=== PATIENT | female | born 1995 | race Caucasian/White ===

== ENCOUNTER 2020-03-29 19:10 | Emergency (ER) | payer OTHER ==
[~2020-03-29] VITALS: Ht 165.1 cm; Wt 87.7 kg
[2020-03-29 19:32] VITALS: BP 146/96
[2020-03-29] MEDS ORDERED: TRAM50TA PO (19:49)
--- NOTE | 2020-03-29 19:49 | PHYS DOC ---
Past History Past Medical History: Other Additional Past Medical Histor: BACK PAIN, ASO Past Surgical History: Other Additional Past Surgical Histo: SHOULDER SX Alcohol Use: Occasionally General Adult EDM: Chief Complaint: LOWEREXTREMITY INJURY HPI: HPI: Patient is a 24-year-old female who presents with fishhook sticking in her right thigh. Patient states that she was out fishing and right after she caught the fish, it started shaking violently and shook the lower loose which then penetrated her right thigh. Patient reports pain is mild. She denies any other injuries. Patient is up-to-date on her tetanus. [] Review of Systems: Review of Systems: Constitutional: Denies fever or chills Respiratory: Denies cough or shortness of breath Cardiovascular: Denies chest pain or edema Musculoskeletal: Positive right thigh pain and foreign body Heart Score: Risk Factors: Risk Factors: DM, Current or recent (<one month) smoker, HTN, HLP, family history of CAD, obesity. Risk Scores: Score 0 - 3: 2.5% MACE over next 6 weeks - Discharge Home Score 4 - 6: 20.3% MACE over next 6 weeks - Admit for Clinical Observation Score 7 - 10: 72.7% MACE over next 6 weeks - Early Invasive Strategies Allergies: Allergies: Allergies Coded Allergies Type Severity Reaction Last Updated Verified No Known Drug Allergies 03/29/20 No Physical Exam: PE: Constitutional: Well developed, well nourished, no acute distress, non-toxic appearance. [] Cardiovascular: Regular rate and rhythm [] Lungs & Thorax: Bilateral breath sounds clear to auscultation [] Skin: Right thigh demonstrates foreign body with 2 barbed hooks of a treble hook buried within the skin. [] Current Patient Data: Vital Signs: Vital Signs Date Time Temp Pulse Resp B/P (MAP) Pulse Ox O2 Delivery O2 Flow Rate FiO2 03/29/20 19:32 98.2 80 18 146/96 (113) 99 Room Air EKG: EKG: [] Radiology/Procedures: Radiology/Procedures: [] Course & Med Decision Making: Course & Med Decision Making Pertinent Labs and Imaging studies reviewed. (See chart for details) Patient's right thigh anesthetized with 1% lidocaine with epinephrine after which barbs of hook were clipped from the lower and . Base of the hooks were maintained with traction while a size 0 suture string was utilized to remove hooks by thrusting technique, thus disengaging the sharmaine with successful removal of both hook fragments. Patient tolerated procedure well. Patient up-to-date on her tetanus and is currently taking clindamycin for elevated ASO titer. No further antibiotics needed at this time. Dragon Disclaimer: Dragon Disclaimer: This electronic medical record was generated, in whole or in part, using a voice recognition dictation system. Departure Departure: Impression: Primary Impression: Fishing hook foreign body Qualified Codes: W45.8XXA - Other foreign body or object entering through skin, initial encounter Disposition: HOME/RESIDENCE PRIOR TO ADM Condition: STABLE Referrals: PCP,UNKNOWN (PCP) Patient Instructions: Fish Hook Removal Scripts Tramadol Hcl (TRAMADOL HCL) 50 Mg Tablet 50 MG PO PRN Q6HRS PRN for PAIN, #12 TAB Prov: GUME MERCEDES Jr. DO 03/29/20 Justification of Admission: Justification of Admission: Justification of Admission Dx: Comment: (Not applicable) GUME MERCEDES Jr. DO Mar 29, 2020 19:49
[2020-03-29] MEDS ORDERED: NEOMY/BACITR/POLYMYXIN OINT PACKET. TP ONE ×2 (19:51→20:00)
== END 2020-03-29 19:55 | disposition home or self-care (01) ==
LOC: ER 19:10
DX: S70.351A Superficial foreign body, right thigh, initial encounter (principal); W45.8XXA Other foreign body or object entering through skin, initial encounter; Y93.89 Activity, other specified; Y92.89 Other specified places as the place of occurrence of the external cause; Y99.8 Other external cause status
CPT/HCPCS: 99284